=== PATIENT | male | born 1950 | race Caucasian/White ===

== ENCOUNTER 2018-09-05 07:56 | Emergency (ER) | payer MEDICARE, BC ==
[2018-09-05 08:07] VITALS: BP 175/92
[2018-09-05] MEDS ORDERED: Ketorolac 30 MG/ML SDV IVPUSH ONE (08:08)
[2018-09-05] MEDS ORDERED: Sodium Chloride 0.9% 10 ML Syringe FLUSH PRN (08:08)
[2018-09-05] MEDS ORDERED: Sodium Chloride 0.9% 1,000 ML IV ONE (08:08)
[2018-09-05] MEDS ORDERED: Ondansetron 4 MG/2 ML SDV IVPUSH ONE (08:08)
[2018-09-05] MEDS ORDERED: Morphine 4 MG/ML Syringe IVPUSH PRN (08:36)
--- NOTE | 2018-09-05 09:20 | EDM.PDOC ---
ED HPI GENERAL MEDICAL PROBLEM - General Chief Complaint: Abdominal Pain Stated Complaint: L SIDE ABDOMINAL PAIN Time Seen by Provider: 09/05/18 08:08 Source of Information: Reports: Patient History Limitations: Reports: No Limitations - History of Present Illness INITIAL COMMENTS - FREE TEXT/NARRATIVE: 67-year-old previously healthy male comes in with sudden onset left lower quadrant pain. He felt fine last evening. Today at work at about 5 in the morning he suddenly had severe pain in the left lower abdomen. He also felt very nauseated and had a couple of episodes of vomiting and dry heaving. No diarrhea. No fever. Still feels mildly nauseated. Pain has been constant. It is not related to movement. There is no clear exacerbating or relieving factor. Denies dysuria or hematuria. No fever or recent illness. No cough, chest pain, shortness of breath. Pain is currently rated 8 out of 10 in severity. Left Lower Abdomen Pain Score (Numeric/FACES): 8 - Related Data Allergies Allergy/AdvReac Type Severity Reaction Status Date / Time No Known Allergies Allergy Verified 09/05/18 08:07 Home Meds: Home Meds Ciprofloxacin [Cipro] 500 mg PO BID #16 ml 10/14/14 [Rx] Minocycline HCl 100 mg PO BID #24 capsule 10/14/14 [Rx] Saxagliptin [Onglyza] 5 mg PO DAILY 10/14/14 [History] metFORMIN [Glucophage] 1,000 mg PO BID 10/14/14 [History] Ibuprofen 800 mg PO TID PRN #40 tablet 09/05/18 [Rx] Ondansetron [Zofran ODT] 4 mg PO Q6H PRN #12 tab.dis 09/05/18 [Rx] oxyCODONE 5 mg PO QID PRN #16 tab 09/05/18 [Rx] Past Medical History HEENT History: Reports: Impaired Vision Other Musculoskeletal History: bunion surgery Endocrine/Metabolic History: Reports: Diabetes, Type II - Past Surgical History HEENT Surgical History: Reports: Tonsillectomy Musculoskeletal Surgical History: Reports: Knee Replacement Social & Family History - Family History Family Medical History: Noncontributory - Tobacco Use Smoking Status *Q: Never Smoker Second Hand Smoke Exposure: No - Caffeine Use Caffeine Use: Reports: Coffee, Soda - Recreational Drug Use Recreational Drug Use: No ED ROS GENERAL - Review of Systems Review Of Systems: See Below Constitutional: Denies: Fever HEENT: Reports: No Symptoms Respiratory: Denies: Shortness of Breath Cardiovascular: Denies: Chest Pain Endocrine: Reports: No Symptoms GI/Abdominal: Reports: Abdominal Pain, Vomiting : Denies: Dysuria Musculoskeletal: Reports: No Symptoms Skin: Reports: No Symptoms Neurological: Reports: No Symptoms Psychiatric: Reports: No Symptoms ED EXAM, GI/ABD - Physical Exam Exam: See Below Exam Limited By: No Limitations General Appearance: Alert, WD/WN, No Apparent Distress Eyes: Bilateral: Normal Appearance Ears: Normal External Exam Nose: Normal Inspection Throat/Mouth: Normal Inspection, Normal Oropharynx, Normal Voice Head: Atraumatic, Normocephalic Neck: Normal Inspection, Supple Respiratory/Chest: No Respiratory Distress, Lungs Clear, Normal Breath Sounds, Chest Non-Tender Cardiovascular: Normal Peripheral Pulses, Regular Rate, Rhythm, No Murmur GI/Abdominal Exam: Soft, No Distention, Other (Identifies left lower quadrant as area of pain, but doesn't really have tenderness with palpation). No: Rebound Back Exam: Normal Inspection, CVA Tenderness (L) (Mild). No: CVA Tenderness (R) Extremities: Normal Inspection Neurological: Alert, Oriented, Normal Cognition, No Motor/Sensory Deficits Psychiatric: Normal Affect, Normal Mood Skin Exam: Warm, Dry, Intact, Normal Color, No Rash Course - Vital Signs Last Recorded V/S: Last Vital Signs Temp 36.6 C 09/05/18 08:03 Pulse 84 09/05/18 08:03 Resp 14 09/05/18 08:03 BP 175/92 H 09/05/18 08:03 Pulse Ox 96 09/05/18 08:03 - Orders/Labs/Meds Orders: Active Orders 24 hr Category Date Time Status Peripheral IV Care [RC] . DIRECTED Care 09/05/18 08:08 Active Peripheral IV Care [RC] . DIRECTED Care 09/05/18 08:08 Active Morphine Med 09/05/18 08:36 Active 4 mg IVPUSH Q2H PRN Sodium Chloride 0.9% [Saline Flush] Med 09/05/18 08:08 Active 10 ml FLUSH ASDIRECTED PRN Peripheral IV Insertion Adult [OM.PC] Routine Oth 09/05/18 08:08 Ordered Medication Orders Morphine Sulfate (Morphine) 4 mg IVPUSH Q2H PRN PRN Reason: Pain Last Admin: 09/05/18 10:35 Dose: 4 mg Sodium Chloride (Saline Flush) 10 ml FLUSH ASDIRECTED PRN PRN Reason: Keep Vein Open Last Admin: 09/05/18 08:48 Dose: 10 ml Labs: Laboratory Tests 09/05/18 09/05/18 09/05/18 Range/Units 08:41 08:41 09:56 WBC 8.98 (4.23-9.07) K/mm3 RBC 4.85 (4.63-6.08) M/mm3 Hgb 14.2 (13.7-17.5) gm/L Hct 40.9 (40.1-51.0) % MCV 84.3 (79.0-92.2) fl MCH 29.3 (25.7-32.2) pg MCHC 34.7 (32.2-35.5) g/dl RDW Std Deviation 38.8 (35.1-43.9) fL Plt Count 216 (163-337) K/mm3 MPV 10.9 (9.4-12.3) fl Neut % (Auto) 82.5 H (34.0-67.9) % Lymph % (Auto) 8.8 L (21.8-53.1) % Payne % (Auto) 6.3 (5.3-12.2) % Eos % (Auto) 1.4 (0.8-7.0) Baso % (Auto) 0.4 (0.1-1.2) % Neut # (Auto) 7.40 H (1.78-5.38) K/mm3 Lymph # (Auto) 0.79 L (1.32-3.57) K/mm3 Payne # (Auto) 0.57 (0.30-0.82) K/mm3 Eos # (Auto) 0.13 (0.04-0.54) K/mm3 Baso # (Auto) 0.04 (0.01-0.08) K/mm3 Manual Slide Review Abnormal smear Sodium 136 (136-145) mEq/L Potassium 4.3 (3.5-5.1) mEq/L Chloride 102 (98-107) mEq/L Carbon Dioxide 23 (21-32) mEq/L Anion Gap 15.3 H (5-15) BUN 23 H (7-18) mg/dL Creatinine 1.1 (0.7-1.3) mg/dL Est Cr Clr Drug Dosing 75.66 mL/min Estimated GFR (MDRD) > 60 (>60) mL/min BUN/Creatinine Ratio 20.9 H (14-18) Glucose 316 H (80-115) mg/dL Calcium 9.3 (8.5-10.1) mg/dL Total Bilirubin 0.5 (0.2-1.0) mg/dL AST 17 (15-37) U/L ALT 32 (16-63) U/L Alkaline Phosphatase 51 (46-116) U/L Total Protein 7.3 (6.4-8.2) g/dl Albumin 4.0 (3.4-5.0) g/dl Globulin 3.3 gm/dL Albumin/Globulin Ratio 1.2 (1-2) Lipase 223 (73-393) U/L Urine Color Yellow (Yellow) Urine Appearance Clear (Clear) Urine pH 5.5 (5.0-8.0) Ur Specific [place] 1.025 (1.005-1.030) Urine Protein Negative (Negative) Urine Glucose (UA) 2+ H (Negative) Urine Ketones Trace H (Negative) Urine Occult Blood 3+ H (Negative) Urine Nitrite Negative (Negative) Urine Bilirubin Negative (Negative) Urine Urobilinogen 0.2 (0.2-1.0) Ur Leukocyte Esterase Negative (Negative) Urine RBC >100 H (0-5) /hpf Urine WBC 0-5 (0-5) /hpf Ur Epithelial Cells Not seen (0-5) /hpf Urine Bacteria Few (FEW) /hpf Urine Mucus Few (FEW) /hpf Meds: Medications Generic Name Dose Route Start Last Admin Trade Name Freq PRN Reason Stop Dose Admin Morphine Sulfate 4 mg 09/05/18 08:36 09/05/18 10:35 Morphine IVPUSH 4 mg Q2H PRN Administration Pain Sodium Chloride 10 ml 09/05/18 08:08 09/05/18 08:48 Saline Flush FLUSH 10 ml ASDIRECTED PRN Administration Keep Vein Open Discontinued Medications Generic Name Dose Route Start Last Admin Trade Name Freq PRN Reason Stop Dose Admin Sodium Chloride 1,000 mls @ 1,000 mls/hr 09/05/18 08:08 09/05/18 08:48 Normal Saline IV 09/05/18 09:07 1,000 mls/hr ONETIME ONE Administration Ketorolac Tromethamine 30 mg 09/05/18 08:08 09/05/18 08:48 Toradol IVPUSH 09/05/18 08:09 30 mg ONETIME ONE Administration Morphine Sulfate Confirm 09/05/18 10:33 Morphine Sulfate Administered 09/05/18 10:34 Dose 4 mg IV .STK-MED ONE Ondansetron HCl 4 mg 09/05/18 08:08 09/05/18 08:48 Zofran IVPUSH 09/05/18 08:09 4 mg ONETIME ONE Administration - Re-Assessments/Exams Free Text/Narrative Re-Assessment/Exam: 09/05/18 10:40 CBC normal. Chemistry shows elevated glucose in low 300's, no evidence of DKA. He has known diabetes. UA shows microscopic hematuria. CT a/p shows 4.6 L ureteral stone. Upon reevaluation, pain had completely resolved. He may have already passed the stone. Will rx pain meds in case he continues to have pain. Discussed need for f/u if symptoms persist, discussed ED return precautions. Departure - Departure Time of Disposition: 10:41 Disposition: Home, Self-Care 01 Clinical Impression: Ureterolithiasis - Discharge Information Prescriptions: Ibuprofen 800 mg PO TID PRN #40 tablet PRN Reason: Pain Ondansetron [Zofran ODT] 4 mg PO Q6H PRN #12 tab.dis PRN Reason: Nausea oxyCODONE 5 mg PO QID PRN #16 tab PRN Reason: Pain Referrals: Kingston Mcrae MD [Primary Care Provider] - Forms: ED Department Discharge Additional Instructions: 1. Your CT scan shows a 4.6 mm stone in your left ureter. This will probably pass on its own. If you continue to have pain after a week, you should follow- up with a urologist in [place]. 2. If pain returns, take ibuprofen as prescribed. Take acetaminophen (Tylenol) in addition to ibuprofen as needed. If you continue to have severe pain, take oxycodone as prescribed. No driving or working while taking oxycodone as it can cause sleepiness or confusion. 3. Return to the ED as needed for severe pain, fever, vomiting without keeping liquids down, or other concerning symptoms. - My Orders Last 24 Hours: My Active Orders 09/05/18 08:08 Peripheral IV Care [RC] . DIRECTED Peripheral IV Care [RC] . DIRECTED Sodium Chloride 0.9% [Saline Flush] 10 ml FLUSH ASDIRECTED PRN Peripheral IV Insertion Adult [OM.PC] Routine 09/05/18 08:36 Morphine 4 mg IVPUSH Q2H PRN - Assessment/Plan Last 24 Hours: My Active Orders 09/05/18 08:08 Peripheral IV Care [RC] . DIRECTED Peripheral IV Care [RC] . DIRECTED Sodium Chloride 0.9% [Saline Flush] 10 ml FLUSH ASDIRECTED PRN Peripheral IV Insertion Adult [OM.PC] Routine 09/05/18 08:36 Morphine 4 mg IVPUSH Q2H PRN
--- NOTE | 2018-09-05 10:35 | CT ---
Addendum: Impression states "4.6 mm stone proximal right ureter" which is incorrect with stone located within within the proximal left ureter. --- Addendum1 above dictated on [09/05/2018 14:49] by [Charito Evans Hilton J.] --- --- Addendum1 above signed on [09/05/2018 14:50] by [Charito Evans Hilton J.] --- --- Original report below dictated on [09/05/2018 10:13] by [Charito Evans, Lit [place]] --- --- Original report below signed on [09/05/2018 10:32] by [Charito Evans Hilton J.] --- CT abdomen and pelvis Technique: Multiple axial sections were obtained from above the dome of the diaphragm inferiorly to the pubic symphysis. Intravenous contrast and oral contrast not utilized. Study has been performed as a ureteral stone protocol. Findings: Left renal pelvis is slightly prominent as well as slightly prominent proximal left ureter. These findings are caused by an obstructing stone within the proximal left ureter measuring approximately 4.6 mm. No other ureteral calculi are seen. Minimal calcifications are seen within the dependent portion of the bladder possibly due to sediment. Kidneys show no abnormal calcifications. Slight parenchymal densities are seen within both lung bases most likely representing mild fibrosis. Fatty infiltration is seen throughout the liver. Spleen appears within normal limits. Adrenal glands show no nodule. Pancreas is within normal limits. Gallbladder contains no calcified gallstones. Aorta shows no aneurysm. No retroperitoneal adenopathy or mesenteric abnormalities are seen. No pelvic mass or adenopathy is seen. Appendix is felt to be visualized and appears to be normal. No free fluid or inflammatory change is seen. Incidental prostate calcifications are seen. Bone window settings were reviewed which show diffuse degenerative change throughout the spine with scoliosis. Vacuum phenomena also noted within both sacroiliac joints. Joint space narrowing noted within both hips. Impression: 1. Slight hydronephrosis of the proximal left ureter and left renal pelvis caused by an obstructing 4.6 mm stone within the proximal right ureter. 2. No additional ureteral or renal calculi are seen. 3. Slight calcification within the dependent bladder possibly due to sediment. 4. Other incidental findings. Diagnostic code #3 --- Addendum1 signed ---
== END 2018-09-05 11:30 | disposition home or self-care (01) ==
LOC: JD.ED 07:56
DX: N13.2 Hydronephrosis with renal and ureteral calculous obstruction (principal); E11.9 Type 2 diabetes mellitus without complications; Z79.899 Other long term (current) drug therapy; Z79.84 Long term (current) use of oral hypoglycemic drugs
CPT/HCPCS: 36415; 74176; 80053; 81001; 83690; 85025; 96361; 96374; 96375; 99285; J1885; J2270; J2405; J7040; 99283

== ENCOUNTER 2018-11-06 22:44 | Emergency (ER) | payer OTHER, MEDICARE, BC ==
[2018-11-06] MEDS ORDERED: Orphenadrine 100 MG Tab.ER PO STA (22:59)
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
[2018-11-06 23:19] VITALS: BP 136/79
== END 2018-11-06 23:20 | disposition home or self-care (01) ==
LOC: JD.ED 22:44
DX: S39.012A Strain of muscle, fascia and tendon of lower back, initial encounter (principal); S00.01XA Abrasion of scalp, initial encounter; E11.9 Type 2 diabetes mellitus without complications; Z79.84 Long term (current) use of oral hypoglycemic drugs; Z79.899 Other long term (current) drug therapy; V53.5XXA Driver of pick-up truck or van injured in collision with car, pick-up truck or van in traffic accident, initial encounter
CPT/HCPCS: 99283; A9270